=== PATIENT | male | born 1995 | race Two or more races ===

== ENCOUNTER 2020-06-08 20:34 | Emergency (ER) | payer MEDICAID ==
[~2020-06-08] VITALS: Ht 195.6 cm; Wt 109.0 kg
[2020-06-08] MEDS ORDERED: ACETAMINOPHEN 325MG TABLET PO ONE (21:45)
[2020-06-09] MEDS ORDERED: HYDROCODONE/ACETAMINOPHEN 5/325MG TABLET PO ONE
[2020-06-09] MEDS ORDERED: BACITRACIN ZINC OINT UDPKT TOP ONE
[2020-06-09 00:21] VITALS: BP 126/81
== END 2020-06-09 00:23 | disposition home or self-care (01) ==
LOC: ER 20:34
DX: S09.8XXA Other specified injuries of head, initial encounter (principal); S02.2XXA Fracture of nasal bones, initial encounter for closed fracture; M25.511 Pain in right shoulder; Y04.2XXA Assault by strike against or bumped into by another person, initial encounter; Y93.89 Activity, other specified; Y92.89 Other specified places as the place of occurrence of the external cause
CPT/HCPCS: 70486; 73030; 99285

== ENCOUNTER 2022-07-14 22:18 | Emergency (ER) | payer MEDICAID ==
[~2022-07-14] VITALS: Ht 190.5 cm; Wt 113.0 kg
[2022-07-14 23:08] VITALS: BP 138/70
== END 2022-07-15 01:00 | disposition left against medical advice (07) ==
LOC: ER 22:18
DX: Z53.21 Procedure and treatment not carried out due to patient leaving prior to being seen by health care provider (principal)